=== PATIENT | male | born 1960 | race Two or more races ===

== ENCOUNTER 2022-10-02 03:01 | Emergency (ER) | payer OTHER ==
[~2022-10-02] VITALS: Ht 175.3 cm; Wt 89.4 kg
[2022-10-02] MEDS ORDERED: ZESTRIL5 MG PO (03:16)
== END 2022-10-02 05:53 ==
LOC: ER 03:01
DX: R00.2 Palpitations (principal); I10 Essential (primary) hypertension